=== PATIENT | female | born 1955 | race Hispanic/Latino ===

== ENCOUNTER 2021-06-19 11:34 | Emergency (ER) | payer OTHER, BC ==
--- OUTSIDE RECORDS SUMMARY | 2021-06-19 11:37 | XMS REPORT | Continuity of Care Document ---
:1955 Author Organization [facility] t Address [address] [place] [address] Care Team Providers Name Role Phone Pcp MD Primary Care Physician Unavailable Nick Cunha MD Attending Clinician Gerardo Dominique Attending Clinician ANA FARIAS Attending Clinician Unavailable Problems This patient has no known problems. Allergies, Adverse Reactions, Alerts This patient has no known allergies or adverse reactions. Social History Social Habit Start Date Stop Date Quantity Comments Source History [facility] - Alcohol Std Drinks [facility] History [facility] - Alcohol Binge Medical Doreen ter Sex Assigned At [facility] Tobacco use and 2020-02-06 2020-02-[address] [facility] - exposure 00:00:00 00:00:00 [facility] Alcohol intake 2020-02-06 2020-02-06 [facility] 00:00:00 non-drinker of Medical Ce nter alcohol (finding) History [facility] 2019-05-29 2019-05-[address] [facility] - Alcohol Frequency 00:00:00 00:00:00 [facility] Smoking Status Start Date Stop Date Source Never smoker [facility] Medications Ordered Filled Start Stop Current Ordering Indication Dosage Frequency Signature Comments Components Source Medication Medication Date Date Medication? Clinician (SIG) Name Name naproxen Yes 500mg Take [address] [facility] [address] (NAPROSYN) 1-27 mg [facility] - 500 MG 00:00: mouth 2 Medical tablet 00 (two) Center times daily with breakfast and dinner WITH FOOD OR MILK. valsartan-h Yes 1{tbl} QD Take [address] ydrochlorot 1-13 tablet by Juan es - hiazide 00:00: mouth Medical (DIOVAN-HCT 00 daily. Center ) 160-12.5 mg per tablet dilTIAZem 2019- Yes 180mg QD Take [address] (CARDIZEM 1-11 mg by [facility] - CD) 180 MG 00:00: mouth Medica l 24 hr 00 daily. Center capsule valsartan 0 Yes 40mg QD Take [address] (DIOVAN) 40 7-22 by mouth Luke s - MG tablet 00:27: daily. Medica l 00 Center Procedures This patient has no known procedures. Plan of Care Planned Activity Planned Date Details Comments Source Future Scheduled 2020-07-10 INFLUENZA VACCINE (#1) [facility] 00:00:00 [code = INFLUENZA Medical Ce nter VACCINE (#1)] Future Scheduled 2020 PNEUMOCOCCAL 65+ YRS [facility] - Test 00:00:00 (1 of 1 - [facility] [id number] PCV13) [code = PNEUMOCOCCAL 65+ YRS (1 of 1 - [id number] PCV13)] Future Scheduled [address] [facility] - Test 00:00:00 (procedure) [code = [facility] 58926267] Future Scheduled [address] [facility] - Test 00:00:00 [facility] cervix (procedure) [code = 534186609] Future Scheduled [address] [facility] - Test 00[facility]00:00 [facility] breast (procedure) [code = 822741856] Future Scheduled [address] [facility] - Test 00:00:00 [facility] colon (procedure) [code = 688246622] Encounters Start End Encounter Admission Attending Care Care Encounter Source Date/Time Date/Time Type Type Clinicians Facility Department ID 2021-02-01 2021-02-01 Telephone VINAYAK Cunha [id number] 00:00:00 00:00:00 [facility] [id number] Surgical [id number] Specialti [id number] es [address] [facility] 2020-08-23 2020-08-23 [facility] [id number] 00:00:00 00:00:00 [facility] [id number] Surgical [id number] Specialti [id number] es [address] [facility] 2020-06-26 2020-06-26 Formerly named [facility] [id number] 00:00:00 00:00:00 [facility] [id number] Surgical [id number] Specialti [id number] es [address] [facility] 2020-06-02 2020-06-02 Formerly named [facility] [id number] 00:00:00 00:00:00 [facility] [id number] Surgical [id number] Specialti [id number] es [address] [facility] 2020-05-02 2020-05-02 Formerly named [facility] [id number] 00:00:00 00:00:00 [facility] [id number] Surgical [id number] Specialti [id number] es [address] [facility] 2020-04-06 2020-04-06 Formerly named [facility] [id number] 00:00:00 00:00:00 [facility] [id number] Surgical [id number] Specialti [id number] es [address] [facility] 2020-03-14 2020-03-14 [facility] [id number] 15:35:00 23:59:00 [facility] [id number] Surgical [id number] Specialti [id number] es 8[address] [facility] 2020-03-14 2020-03-14 [facility] [id number] 15:27:22 15:42:22 Visit [facility] [id number] Surgical [id number] [facility] [id number] [address] [facility] Results Test Description Test Time Test Comments Results Result [facility] e Comments VENOUS DOPPLER 2019-05-30 Reason for FINAL REPORT PATIENT ARMS, BILATERAL 04:28:00 exam:->HAND ID: [id number] VENOUS PAINReason for DOPPLER ARMS, exam:->arm BILATERAL CLINICAL swelling INDICATION: HAND PAINarm swelling COMPARISON: None TECHNIQUE: Real time burns scale, color, and spectral Doppler imaging of the bilateral upper extremity venous system. FINDINGS:There is normal compressibility of the bilateral internal jugular, brachial, and basilic veins. Preserved color and spectral Doppler flow within the internal jugular, subclavian, axillary, brachial and basilic veins. Additional findings: None. IMPRESSION: No evidence for deep venous thrombosis bilaterally. Signed: Bird Johnson Verified Date/Time: 05/30/2019 04:28:46 C-REACTIVE PROTEIN 2019-05-30 02:32:00 Test Item Value Reference Range Interpretation Comme nts C-REACTIVE PROTEIN (BEAKER) (test code = 676) 21.62 mg/dL 0.00-1.0 0 H [id number] 02:29:00 Test Item Value Reference Range Interpretation Comments D-DIMER QUANTITATIVE (BEAKER) 2.15 MG/L FEU <0.50 H (test code = 671) REGARDING D-DIMER RESULTS: The 98% NPV (Negative Predictive Value) for DVT/PE exclusion is 0.50 mg/LFEU as suggested by the sulphate tester and as approved by the FDA.LACTIC ACID, [id number] 02:24:00 Test Item Value Reference Range Interpretation Comments LACTATE BLOOD VENOUS 0.9 mmol/L 0.5-2.0 Specime n slightly (2) (BEAKER) (test hemolyzed code = 2872) RAD, HAND, 3 VIEWS, [id number] 00:48:00Reason for exam:->HAND PAINFINAL REPORT CLINICAL HISTORY: HAND PAIN TECHNIQUE: 3 views of the bilateral hands COMPARISON: None IMPRESSION: The bones of the hands are intact without evidence of fracture or dislocation. No significant soft tissue abnormality. Diffuse soft tissue prominence throughout the bilateral hands. No radiopaque foreign body. Scattered degenerative changes, most notably at the IP joints. Well-corticated calcific density adjacent to the proximal aspect of the right scaphoid may be degenerative versus sequela of prior trauma. Osteopenia. Signed: [facility] Verified Date/Time: 05/30/2019 00:48:46 12:48 AMRAD, HAND, 3 VIEWS, [id number] 00:48:00Reason for exam:->HAND PAINFINAL REPORT CLINICAL HISTORY: HAND PAIN TECHNIQUE: 3 views of the bilateral hands COMPARISON: None IMPRESSION: The bones of the hands are intact without evidence of fracture or dislocation. No significant soft tissue abnormality. Diffuse soft tissue prominence throughout the bilateral hands. No radiopaque foreign body. Scattered degenerative changes, most notably at the IP joints. Well-corticated calcific density adjacent to the proximal aspect of the right scaphoid may be degenerative versus sequela of prior trauma. Osteopenia. Signed: Bird Johnson Verified Date/Time: 05/30/2019 00:48:46 12:48 AMBASIC METABOLIC [id number] 00:13:00 Test Item Value Reference Range Interpretation Comments SODIUM (BEAKER) 136 meq/L 135-148 (test code = 381) POTASSIUM (BEAKER) 3.3 meq/L 3.6-5.5 L (test code = 379) CHLORIDE (BEAKER) 104 meq/L 98-106 (test code = 382) CO2 (BEAKER) (test 25 meq/L 20-29 code = 355) BLOOD UREA NITROGEN 11 mg/dL 10-26 (BEAKER) (test code = 354) CREATININE (BEAKER) 0.72 mg/dL 0.50-1.20 (test code = 358) GLUCOSE RANDOM 138 mg/dL 70-110 H (BEAKER) (test code = 652) CALCIUM (BEAKER) 9.1 mg/dL 8.5-10.5 (test code = 697) EGFR (BEAKER) (test mL/min/1.73 INSUFFIC IENT CLINICAL code = 1092) sq m DATA TO CALCULA TE ESTIMATED GFR. CBC W/PLT COUNT & AUTO [id number] 00:00:00 Test Item Value Reference Range Interpretation Comments WHITE BLOOD CELL COUNT (BEAKER) 14.2 K/ L 4.0-10.0 H (test code = 775) RED BLOOD CELL COUNT (BEAKER) 4.73 M/ L 4.00-5.00 (test code = 761) HEMOGLOBIN (BEAKER) (test code = 14.1 GM/DL 12.0-15.5 410) HEMATOCRIT (BEAKER) (test code = 41.3 % 36.0-46.0 411) MEAN CORPUSCULAR VOLUME (BEAKER) 87.3 fL 82.0-99.0 (test code = 753) MEAN CORPUSCULAR HEMOGLOBIN 29.8 pg 27.0-33.0 (BEAKER) (test code = 751) MEAN CORPUSCULAR HEMOGLOBIN CONC 34.1 GM/DL 32.0-36.0 (BEAKER) (test code = 752) RED CELL DISTRIBUTION WIDTH 13.9 % 12.0-15.0 (BEAKER) (test code = 412) PLATELET COUNT (BEAKER) (test 189 K/CU MM 150-430 code = 756) MEAN PLATELET VOLUME (BEAKER) 10.4 fL 6.0-11.5 (test code = 754) NUCLEATED RED BLOOD CELLS 0 /100 WBC 0-0 (BEAKER) (test code = 413) NEUTROPHILS RELATIVE PERCENT 71 % (BEAKER) (test code = 429) LYMPHOCYTES RELATIVE PERCENT 17 % (BEAKER) (test code = 430) MONOCYTES RELATIVE PERCENT 10 % (BEAKER) (test code = 431) EOSINOPHILS RELATIVE PERCENT 2 % (BEAKER) (test code = 432) BASOPHILS RELATIVE PERCENT 0 % (BEAKER) (test code = 437) NEUTROPHILS ABSOLUTE COUNT 10.03 K/ L 1.80-8.00 H (BEAKER) (test code = 670) LYMPHOCYTES ABSOLUTE COUNT 2.36 K/ L 1.48-4.50 (BEAKER) (test code = 414) MONOCYTES ABSOLUTE COUNT (BEAKER) 1.43 K/ L 0.00-1.30 H (test code = 415) EOSINOPHILS ABSOLUTE COUNT 0.27 K/ L 0.00-0.50 (BEAKER) (test code = 416) BASOPHILS ABSOLUTE COUNT (BEAKER) 0.05 K/ L 0.00-0.20 (test code = 417) IMMATURE GRANULOCYTES-RELATIVE 1 % 0-0 H PERCENT (BEAKER) (test code = 2801)
[2021-06-19] MEDS ORDERED: HYDROCODONE/APAP 10/325 TAB ONE (13:29)
--- NOTE | 2021-06-19 14:42 | RAD REPORT ---
EXAM DESCRIPTION: RAD - Forearm Left - 06/19/2021 2:35 pm CLINICAL HISTORY: Left forearm pain status post injury FINDINGS: Comminuted intra-articular mildly to moderately displaced fracture involves the distal ra dius. Ulnar fracture styloid process fracture
--- NOTE | 2021-06-19 14:44 | RAD REPORT ---
EXAM DESCRIPTION: RAD - Forearm Right - 06/19/2021 2:35 pm CLINICAL HISTORY: Right arm pain status post fall FINDINGS: Comminuted mildly displaced intra-articular fracture distal radius.
--- NOTE | 2021-06-19 15:22 | ER ---
Nurse's Notes [facility] Name: Gertrudis Vasquez Age: 66 yrs Sex: Female : 1955 Arrival Date: 06/19/2021 Time: 11:37 Bed DIS1 Private MD: Diagnosis: Displaced fracture of right radius;Displaced fracture of left radius;Ulnar styloid fracture - left Presentation: 06/19 13:04 Chief complaint: Patient states: Fell off the ladder from second step, today at 11 and jl7 c/o left arm pain from elbow to wrist, right arm pain but not as bad. Coronavirus screen: Client denies travel out of the [place] in the last 14 days. At this time, the client does not indicate any symptoms associated with coronavirus-19. Ebola Screen: No symptoms or risks identified at this time. Initial Sepsis Screen: Does the patient meet any 2 criteria? No. Patient's initial sepsis screen is negative. Does the patient have a suspected source of infection? No. Patient's initial sepsis screen is negative. Risk Assessment: Do you want to hurt yourself or someone else? Patient reports no desire to harm self or others. Onset of symptoms was June 19, 2021 at 11:00. 13:04 Method Of Arrival: Ambulatory [facility] 13:04 Acuity: HALIMA 4 jl7 Triage Assessment: 15:36 Injury Description: Fall from ladder. ld1 Historical: - Allergies: 13:09 No Known Allergies; jl7 - PMHx: 13:09 Hypertensive disorder; Diabetes mellitus; jl7 - Immunization history:: Adult Immunizations up to date, Client reports having NOT received the Covid vaccine. - Social history:: Smoking status: Patient denies any tobacco usage or history of. Screenin:04 Abuse screen: Denies threats or abuse. Denies injuries from another. Nutritional ld1 screening: No deficits noted. Tuberculosis screening: No symptoms or risk factors identified. Fall Risk None identified. Assessment: 15:04 General: Appears in no apparent distress. uncomfortable, Behavior is calm, cooperative, ld1 appropriate for age. Pain: Complains of pain in right arm and left arm Pain does not radiate. Pain currently is 8 out of 10 on a pain scale. Quality of pain is described as sharp, throbbing, Pain began 4 hours ago. Is continuous. Neuro: Level of Consciousness is awake, alert, obeys commands, Oriented to person, place, time, situation. Cardiovascular: Capillary refill < 3 seconds Patient's skin is warm and dry. Respiratory: Airway is patent Respiratory effort is even, unlabored, Respiratory pattern is regular, symmetrical. GI: Abdomen is flat, non-distended. : No signs and/or symptoms were reported regarding the genitourinary system. EENT: No signs and/or symptoms were reported regarding the EENT system. Derm: No signs and/or symptoms reported regarding the dermatologic system. Musculoskeletal: Reports pain in right arm and left arm. Vital Signs: 13:04 BP 151 / 97; Pulse 81; Resp 20; Temp 97.3; Pulse Ox 99% ; Weight 70.31 kg; Height 5 ft. jl7 0 in. (152.40 cm); Pain 10/10; 15:04 BP 148 / 99; Pulse 86; Resp 20; Pulse Ox 99% on R/A; ld1 13:04 Body Mass Index 30.27 (70.31 kg, 152.40 cm) jl7 ED Course: 11:37 Patient arrived in ED. as 13:08 Triage completed. jl7 13:09 [facility]arl[facility] Handley [facility]-C [facility] kb 13:09 Jeet Wade MD is Attending Physician. kb 13:09 Arm band placed on right wrist. Patient placed in waiting room, Patient notified of jl7 wait time. 14:35 Forearm Left XRAY In Process Unspecified. EDMS 14:35 Forearm Right XRAY In Process Unspecified. EDMS 14:58 Yoli Ledezma, RN is Primary Nurse. ld1 15:04 Patient has correct armband on for positive identification. Call light in reach. Pulse ld1 ox on. NIBP on. 15:04 No provider procedures requiring assistance completed. Patient did not have IV access ld1 during this emergency room visit. 15:29 Orthoglass splint: Sugar tong splint applied on right arm. Sling applied to right arm. em1 15:29 Orthoglass splint: Sugar tong splint applied on left arm. Sling applied to left arm. em1 Administered Medications: 13:10 Drug: [place] (HYDROcodone-acetaminophen) 10 mg-325 mg 1 tabs Route: PO; jl7 Outcome: 15:22 Discharge ordered by . kb 15:36 Discharged to home ambulatory, with family. ld1 15:36 Condition: stable 15:36 Discharge instructions given to patient, family, Instructed on discharge instructions, follow up and referral plans. medication usage, Demonstrated understanding of instructions, follow-up care, medications. 15:36 Patient left the ED. ld1 Signatures: Dispatcher [employer] EDMS Darlene Handley, DRIVER SERVICE TECHNICIAN-C DRIVER SERVICE TECHNICIAN-Janeth Conner Eric em1 Jaycob Escudero RN RN jl7 Yoli Ledezma RN RN ld1 Corrections: (The following items were deleted from the chart) 15:30 15:29 Orthoglass splint: Sugar tong splint applied on right arm. em1 em1
--- NOTE | 2021-06-19 15:22 | EDPHYS ---
Physician Documentation [facility] Name: Gertrudis Vasquez Age: 66 yrs Sex: Female : 1955 Arrival Date: 06/19/2021 Time: 11:37 Bed DIS1 Private MD: ED Physician Jeet Wade HPI: 06/19 16:34 This 66 yrs old Female presents to ER via Ambulatory with complaints of Arm kb Injury, Fall Injury. 16:34 The patient or guardian complains of decreased range of motion, deformity, injury, kb pain, swelling, tenderness. The complaints affect the right forearm, left forearm. Context: The problem was sustained at work, resulted from a fall, on an outstretched hand. Onset: The symptoms/episode began/occurred just prior to arrival. Treatment prior to arrival includes: no previous treatment. Modifying factors: The symptoms are alleviated by nothing. the symptoms are aggravated by movement. Associated signs and symptoms: Pertinent positives: decreased range of motion, pain, swelling. Severity of symptoms: At their worst the symptoms were moderate, in the emergency department the symptoms are unchanged. The patient has not experienced similar symptoms in the past. The patient has not recently seen a physician. Pt reports she fell from 2nd step on a ladder onto buttocks with hands behind her. Reports pain to bilateral forearms/wrists. Historical: - Allergies: 13:09 No Known Allergies; jl7 - PMHx: 13:09 Hypertensive disorder; Diabetes mellitus; jl7 - Immunization history:: Adult Immunizations up to date, Client reports having NOT received the Covid vaccine. - Social history:: Smoking status: Patient denies any tobacco usage or history of. ROS: 16:33 Constitutional: Negative for fever, chills, and weight loss. kb 16:33 MS/extremity: Positive for injury or acute deformity, decreased range of motion, pain, swelling, tenderness, of the right forearm and left forearm. 16:33 All other systems are negative. Exam: 16:33 Constitutional: This is a well developed, well nourished patient who is awake, alert, kb and in no acute distress. Head/Face: Normocephalic, atraumatic. ENT: Moist Mucous membranes Respiratory: Respirations even and unlabored. No increased work of breathing, no retractions or nasal flaring. Back: No spinal tenderness. No costovertebral tenderness. Full range of motion. Skin: Warm, dry with normal turgor. Normal color. Neuro: Awake and alert, GCS 15, oriented to person, place, time, and situation. Moves all extremities. Normal gait. Psych: Awake, alert, with orientation to person, place and time. Behavior, mood, and affect are within normal limits. 16:33 Musculoskeletal/extremity: Extremities: grossly normal except: noted in the right forearm and left forearm: decreased ROM, deformity, pain, swelling, tenderness, ROM: limited active range of motion due to pain, in the right forearm and left forearm, Circulation is intact in all extremities. Sensation intact. Vital Signs: 13:04 BP 151 / 97; Pulse 81; Resp 20; Temp 97.3; Pulse Ox 99% ; Weight 70.31 kg; Height 5 ft. jl7 0 in. (152.40 cm); Pain 10/10; 15:04 BP 148 / 99; Pulse 86; Resp 20; Pulse Ox 99% on R/A; ld1 13:04 Body Mass Index 30.27 (70.31 kg, 152.40 cm) jl7 Procedures: 16:32 Splinting: Splint applied to right arm and left arm using Orthoglass splint, applied by kb tech. Examined by me, post splint application: neurovascular intact, brisk capillary refill noted, Patient tolerated well. MDM: 13:09 Patient medically screened. 16:32 Data reviewed: vital signs, nurses notes. Data interpreted: Pulse oximetry: on room air kb is 99 %. Interpretation: normal. Counseling: I had a detailed discussion with the patient and/or guardian regarding: the historical points, exam findings, and any diagnostic results supporting the discharge/admit diagnosis, radiology results, the need for outpatient follow up, a orthopedic surgeon, to return to the emergency department if symptoms worsen or persist or if there are any questions or concerns that arise at home. 06/19 13:09 Order name: Forearm Left XRAY; Complete Time: 14:44 kb 06/19 13:09 Order name: Forearm Right XRAY; Complete Time: 14:45 kb 06/19 14:59 Order name: Sugar Tong Forearm Splint; Complete Time: 15:29 kb 06/19 14:59 Order name: Sugar Tong Forearm Splint; Complete Time: 15:29 kb Administered Medications: 13:10 Drug: [place] (HYDROcodone-acetaminophen) 10 mg-325 mg 1 tabs Route: PO; jl7 Disposition: 06/20 07:19 Co-signature as Attending Physician, Jeet Wade MD I agree with the assessment and kdr plan of care. Disposition Summary: 06/19/21 15:22 Discharge Ordered Location: Home Condition: Stable kb Diagnosis - Displaced fracture of right radius kb - Displaced fracture of left radius kb - Ulnar styloid fracture - left kb Followup: kb - With: Emergency Department - When: As needed - Reason: Worsening of condition Followup: kb - With: Private Physician - When: 2 - 3 days - Reason: Recheck today's complaints, Continuance of care, Re-evaluation by your physician Discharge Instructions: - Discharge Summary Sheet kb - Wrist Fracture Treated With ORIF kb Forms: - Medication Reconciliation Form kb - Thank You Letter kb - Antibiotic Education kb - Prescription Opioid Use kb Prescriptions: - Tramadol 50 mg Oral Tablet - take 1 tablet by ORAL route every 8 hours as needed; 12 tablet; Refills: 0, kb Product Selection Permitted - Ibuprofen 600 mg Oral Tablet - take 1 tablet by ORAL route every 6 hours As needed take with food; 30 tablet; kb Refills: 0, Product Selection Permitted Signatures: Dispatcher [employer] EDMS Darlene Handley, ELECTROMECHANICAL EQUIPMENT ASSEMBLER-C ELECTROMECHANICAL EQUIPMENT ASSEMBLER-Jeet Harris MD MD kdr Leal, Jahala, RN RN jl7
[2021-06-19 16:10] VITALS: TEMP 97.3; O2SAT 99
[2021-06-19 16:12] VITALS: BP 148/99
== END 2021-06-19 15:36 | disposition home or self-care (01) ==
LOC: ER 11:34
PROC: 2W3DX1Z Immobilization of Left Lower Arm using Splint (ICD-10-PCS; principal; 2021-06-19)
PROC: 2W3CX1Z Immobilization of Right Lower Arm using Splint (ICD-10-PCS; 2021-06-19)
DX: S52.91XA Unspecified fracture of right forearm, initial encounter for closed fracture (principal); S52.92XA Unspecified fracture of left forearm, initial encounter for closed fracture; S52.612A Displaced fracture of left ulna styloid process, initial encounter for closed fracture; W11.XXXA Fall on and from ladder, initial encounter; Y92.89 Other specified places as the place of occurrence of the external cause; Y99.8 Other external cause status; I10 Essential (primary) hypertension
CPT/HCPCS: 99284

== ENCOUNTER 2021-06-27 09:09 | Day surgery (SDC) | payer OTHER ==
[2021-06-25 13:00] LABS: Absolute Lymphocytes (CBC) 2.1 K/uL (0.7-4.9); Basophils % 0.5 % (0-1.3); Hematocrit 42.5 % (36.0-45.0); Lymphocytes % 28.3 % (15.3-44.8); MPV 8.2 fL (7.6-11.3); RBC Red Blood Cell Count 4.81 M/uL (3.86-4.86)
[2021-06-25 13:27] LABS: BUN Blood Urea Nitrogen 18 mg/dL (7-18); Bicarbonate 24 mmol/L (21-32); Glucose Level 121 mg/dL (74-106); Potassium 4.2 mmol/L (3.5-5.1); Sodium Level 140 mmol/L (136-145)
--- NOTE | 2021-06-26 16:29 | EKG ---
Test Date: 2021-06-25 Test Time: 12:03:18 Dryer And Washer Mechanic: TG MEASUREMENT RESULTS: Intervals: Rate: 63 OR: 154 QRSD: 80 QT: 408 QTc: 417 [place]: P: 28 OR: 154 QRS: 12 T: 38 INTERPRETIVE STATEMENTS: Normal sinus rhythm Minimal voltage criteria for LVH, may be normal variant Septal infarct, age undetermined Abnormal ECG Compared to ECG 01/06/2017 15:59:33 Left ventricular hypertrophy now present Myocardial infarct finding now present Right bundle-branch block no longer present Electronically Signed On 06-26-21 16:24:21 CDT by Noah Daly
[2021-06-27] MEDS ORDERED: NA CHLORIDE 0.9% 1,000 ML ONE (09:58)
[2021-06-27] MEDS ORDERED: ROPLVACAINE HCL 40 ML ONE (11:41)
[2021-06-27] MEDS ORDERED: BUPIVACAINE 0.25% PF 30 ML VIAL ONE (11:41)
[2021-06-27] MEDS ORDERED: dexAMETHasone 10 MG/ML VIAL ONE (11:41)
[2021-06-27] MEDS ORDERED: MIDAZOLAM HCL 2 MG/2 ML INJ ONE (11:41)
[2021-06-27] MEDS ORDERED: LIDOCAINE 1% MPF 5 ML VIAL ONE (11:41)
[2021-06-27] MEDS ORDERED: NS 0.9% VIAL 20 ML ONE (11:41)
[2021-06-27] MEDS ORDERED: FENTANYL CITR 100 MCG/2 ML ONE ×2 (11:41→12:50)
[2021-06-27] MEDS ORDERED: LIDOCAINE 2% MPF 5 ML VIAL ONE (11:43)
[2021-06-27] MEDS ORDERED: propofoL 200 MG/20 ML VIAL IV ONE (11:43)
[2021-06-27] MEDS ORDERED: KETOROLAC 30 MG/ML INJ ONE (12:12)
[2021-06-27] MEDS ORDERED: CEFAZOLIN SODIUM 1 GM/VIAL ONE (12:30)
[2021-06-27] MEDS ORDERED: EPHEDRINE SULF 50 MG/ML VIAL ONE (12:44)
[2021-06-27] MEDS ORDERED: Ringers Lactate 1,000 ML IV ONE (12:59)
[2021-06-27] MEDS ORDERED: ONDANSETRON 4 MG/2 ML VIAL ONE (14:38)
--- NOTE | 2021-06-27 14:44 | RAD REPORT ---
EXAM DESCRIPTION: RAD - Fluoroscopy <1 Hour - 06/27/2021 2:34 pm CLINICAL HISTORY: CLOSED REDUCTION, EXTERNAL FIXATOR OF LEFT WRIST COMPARISON: Fluoroscopy <1 Hour dated 06/27/2021 FINDINGS: Fluoroscopy time: 0.4 minutes
--- NOTE | 2021-06-27 14:44 | RAD REPORT ---
EXAM DESCRIPTION: RAD - Fluoroscopy <1 Hour - 06/27/2021 2:34 pm CLINICAL HISTORY: ORIF RIGHT WRIST COMPARISON: No comparisons FINDINGS: Fluoroscopy time: 0.5 minutes
[2021-06-27 15:12] VITALS: TEMP 97
[2021-06-27] MEDS: HYDROCODONE/APAP 10/325 TAB ONE ×2 (15:19→15:24)
[2021-06-27 16:39] VITALS: BP 152/89; O2SAT 96
--- NOTE | 2021-06-27 16:57 | OP ---
Date of Procedure: 06/27/2021 Surgeon: Tad Shafer MD Preoperative Diagnoses: 1.Right two-part intra-articular distal radius fracture with slight displacement. 2.Left comminuted intra-articular multifragmented distal radius fracture. Postoperative Diagnoses: 1.Right two-part intra-articular distal radius fracture with slight displacement. 2.Left comminuted intra-articular multifragmented distal radius fracture. Procedures: 1.Right open reduction and internal fixation of distal radius using the Acumed II volar radius plati ng set. 2.Left distal radius closed reduction with external fixation using an Drew WristJack as well as supp lemental pinning. Estimated Blood Loss: 20 mL. Complications: There were no complications. Pathology Specimen: No pathology specimen sent. Indications For Operation: is unfortunate patient, who has unfortunately fell injuring b oth of her wrists. On the right side, she had an intra-articular slightly displaced distal radius fr acture. On the left side, she had a comminuted multifragmented intra-articular distal radius fractur e. Risks, benefits, and alternatives of different methods of treating this have been discussed with the patient with the assistance of a staff weapons officer. She says she understands things as presented. It i s possible to treat the right side probably closed; however, this would entail significant cast fixat ion and would be highly limiting given the fact that her left side definitely needs operative interve ntion. She says she understands things as presented and wishes to proceed. Description Of Procedure: The patient was taken to the operating room and placed in supine position. General anesthesia was obtained by staff. Following this, IV was placed by Anesthesia staff in her foot. Both upper extremities were then prepped and draped in the usual sterile fashion for the proc edures. A well-padded tourniquet had been placed on the proximal arm, both sides. The patient was f irst turned to the right. C-arm was brought into ensure good views and the arm was then elevated, bu t not exsanguinated. Tourniquet was raised. A standard volar approach was then taken down carefully through skin and soft tissues. Meticulous hemostasis being maintained using bipolar electrocautery. This leads down to the flexor carpi radialis, which was retracted radialward to take radial artery. The underlying sheath was then exploited and the tendon of the flexor pollicis longus was then move d ulnarward to protect the median nerve. This led down to the pronator quadratus and was divided in its midsubstance longitudinally and it was then gently removed from the volar aspect of the distal ra dius. The Acumed II plate was then placed in appropriate position and was held in the position after reduction and remaining pegs as well as screws were placed. It was checked under biplanar C-arm rad iography to ensure a good reduction of the fracture as well as plate placement and length of screws a nd pegs. The wound was then irrigated and closed using nylon sutures. The patient was placed in ext remely well-padded sterile dressing. After the tourniquet had been dropped, attention was then turne d to the left side. The left upper extremity was then elevated, but not exsanguinated. Tourniquet w as raised. The positioning guide from the LED retractor was then used for marking of the position of the radial pins. A longitudinal incision was then made carefully through skin only. Meticulous hem ostasis being maintained using bipolar electrocautery. This leads down to the correct interval, whic h was divided. Care was taken to avoid the radial nerve and 2 proximal pins were then placed using C -arm for placement and depth. This incision was then closed around the pins. Attention was then tur valentin distally where the 2 more distal pins were then placed in essentially the same fashion using the aiming guide at appropriate depth and position. After this, the WristJack was then placed and secure d at some degree of flexion as well as distraction was used to bring the distal radius out to length using ligamentotaxis. The radial styloid is more or less a free fragment and was secured using 0.062 K-wire, which was bicortical. It was checked under biplanar C-arm radiography being appropriate pos ition. After this, the ex-fix was checked for position and stability as well as the fracture itself. The pin was bent and the left upper extremity was then dressed using Adaptic, sterile dressing, gau ze. The drapes were then removed and the left arm was placed into a sugar-tong splint with multiple layers of soft roll as well as Nick wrap. The right was placed in a volar Orthoglass splint. The pat ient was then awakened and taken to recovery room in good condition. No complications. SE/MODL Voice ID: [id number] Report ID: [id number]
== END 2021-06-27 16:35 | disposition home or self-care (01) ==
LOC: OR 09:09
PROVIDERS: ATTEND Orthopaedic Surgery
PROC: 0PHJ05Z Insertion of External Fixation Device into Left Radius, Open Approach (ICD-10-PCS; 2021-06-27)
PROC: 0PSH04Z Reposition Right Radius with Internal Fixation Device, Open Approach (ICD-10-PCS; principal; 2021-06-27 11:30)
PROC: 0PSJ04Z Reposition Left Radius with Internal Fixation Device, Open Approach (ICD-10-PCS; 2021-06-27 11:30)
DX: S52.571A Other intraarticular fracture of lower end of right radius, initial encounter for closed fracture (principal); S52.572A Other intraarticular fracture of lower end of left radius, initial encounter for closed fracture; Z20.822 Contact with and (suspected) exposure to COVID-19
CPT/HCPCS: 93005; 85025; 80048; 36415; 82947; 76000 ×2; 25608; 25609; 20692; U0003; J2250; J2405; J0690; J1100; J2704; J2795; J3010; J7030; J7120

== ENCOUNTER 2021-08-08 10:49 | Day surgery (SDC) | payer OTHER ==
[2021-08-08] MEDS ORDERED: NA CHLORIDE 0.9% 1,000 ML ONE (11:35)
[2021-08-08 11:38] VITALS: O2SAT 97
[2021-08-08] MEDS ORDERED: FENTANYL CITR 100 MCG/2 ML ONE (12:32)
[2021-08-08] MEDS ORDERED: propofoL 200 MG/20 ML VIAL IV ONE (12:32)
[2021-08-08] MEDS ORDERED: LIDOCAINE 2% MPF 5 ML VIAL ONE (12:32)
[2021-08-08] MEDS ORDERED: MIDAZOLAM HCL 2 MG/2 ML INJ ONE (12:32)
[2021-08-08] MEDS ORDERED: KETOROLAC 30 MG/ML INJ ONE (13:21)
[2021-08-08 14:06] VITALS: TEMP 97.9
--- NOTE | 2021-08-08 14:20 | OP ---
Date of Procedure: 08/08/2021 Surgeon: Tad Shafer MD Preoperative Diagnosis: Retained left external fixator of forearm. Postoperative Diagnosis: Retained left external fixator of forearm. Procedure: Removal of external fixator of left forearm. Estimated Blood Loss: 3 mL. Complications: No complications. Specimens: No pathology specimens sent. Indication For Operation: is a patient, who is 66 years old, who unfortunately had bilat eral distal radius fractures. Her right side was treated by me with open reduction and internal fixa tion and is healing well. Her left side was also done by me and required external fixation for signi ficant displacement and comminution. She previously has had a pin removed from there, but now her ra dius has healed and has the need for removal of external fixator. I discussed with her that sometime s we can do this in the office, but she had the option to do in the operating room if she desires. S he says she understands things as presented and at this time opts for going to the operating room and agrees to proceed. Procedure In Detail: The patient was taken to the operating room and placed in supine position. Sed ation was obtained by the Anesthesia staff. Following this, sterile gloves were donned and the exter nal fixator was removed in standard fashion. She was then placed in a dressing and was taken to recovery room in good condition. There were no complications. /BEAR Voice ID: [id number] Report ID: [id number]
[2021-08-08] MEDS ORDERED: HYDROCODONE/APAP 7.5/325 MG TAB ONE (14:36)
[2021-08-08 14:37] VITALS: BP 100/50
== END 2021-08-08 15:00 | disposition home or self-care (01) ==
LOC: OR 10:49
PROVIDERS: ATTEND Orthopaedic Surgery
PROC: 0PP Upper Bones, Removal (ICD-10-PCS; principal; 2021-08-08 12:30)
DX: S52.92XD Unspecified fracture of left forearm, subsequent encounter for closed fracture with routine healing (principal); Z20.822 Contact with and (suspected) exposure to COVID-19
CPT/HCPCS: 82947; 20694; U0003; J2250; J2704; J3010; J7030